=== PATIENT | male | born 1995 | race African-American/Black ===

== ENCOUNTER 2017-11-20 21:46 | Emergency (ER) | payer SELFPAY, MEDICAID | END 2017-11-20 23:42 | disposition left against medical advice (07) | LOC: M ED 21:46 | DX: R10.9 Unspecified abdominal pain (principal); Z53.21 Procedure and treatment not carried out due to patient leaving prior to being seen by health care provider ==

== ENCOUNTER 2018-11-16 01:45 | Emergency (ER) | payer SELFPAY ==
[~2018-11-16] VITALS: Ht 175.3 cm; Wt 127.3 kg
[2018-11-16 01:46] VITALS: BP 128/80
== END 2018-11-16 01:55 | disposition left against medical advice (07) ==
LOC: M ED 01:45
DX: Z53.29 Procedure and treatment not carried out because of patient's decision for other reasons (principal)

== ENCOUNTER 2019-11-02 14:21 | Emergency (ER) | payer SELFPAY ==
[2019-11-02] MEDS ORDERED: BOOSTRIX/ADACEL VACCINE (DIPHTH/PERTUSS/ACELL/TETANUS) 0.5ML SYR IM ONE (15:00)
[2019-11-02] MEDS ORDERED: LIDOCAINE 1% MDV 20ML VIAL SC ONE (15:00)
[2019-11-02 16:33] VITALS: BP 127/74
--- NOTE | 2019-11-02 17:19 | REP ---
REASON: Assess for foreign body over the 3rd metacarpophalangeal joint. Only two views were obtained. Two limited views cannot rule out a fracture. There is no evidence of a gross fracture. There is no evidence of a radiopaque foreign body. IMPRESSION: Negative limited exam, as described above. Electronically Signed by Isreal Terrazas DO 11/03/2019 11:19 A
== END 2019-11-02 16:34 | disposition home or self-care (01) ==
LOC: EDBD 14:21 → M ED 14:21
DX: S61.412A Laceration without foreign body of left hand, initial encounter (principal); S60.511A Abrasion of right hand, initial encounter; W25.XXXA Contact with sharp glass, initial encounter; Y92.018 Other place in single-family (private) house as the place of occurrence of the external cause; F17.210 Nicotine dependence, cigarettes, uncomplicated

== ENCOUNTER 2019-11-21 15:22 | Emergency (ER) | payer SELFPAY ==
[~2019-11-21] VITALS: Ht 177.8 cm; Wt 117.9 kg
[2019-11-21 15:23] VITALS: BP 132/60
== END 2019-11-21 15:53 | disposition home or self-care (01) ==
LOC: M ED 15:22
DX: Z48.02 Encounter for removal of sutures (principal)

== ENCOUNTER 2022-11-28 03:05 | Emergency (ER) | payer SELFPAY ==
[~2022-11-28] VITALS: Ht 182.9 cm; Wt 100.0 kg
[2022-11-28 03:15] VITALS: BP 113/60; TEMP 96.7; O2SAT 100
== END 2022-11-28 04:52 | disposition left against medical advice (07) ==
LOC: M ED 03:05
DX: Z53.21 Procedure and treatment not carried out due to patient leaving prior to being seen by health care provider (principal)